=== PATIENT | female | born 1955 | race Caucasian/White ===

== ENCOUNTER 2022-03-07 15:44 | Emergency (ER) | payer MEDICARE, OTHER, SELFPAY ==
[2022-03-07 16:05] VITALS: BP 137/74; PULSE 97; RESP 18; TEMP 36.4; O2SAT 94; BMI 21.6
--- NOTE | 2022-03-07 16:27 | ED.GENADULT ---
HPI - General Adult General Chief complaint: Unspecified Complaint, Adult Stated complaint: covid+ Time Seen by Provider: 03/07/22 15:56 History of Present Illness HPI narrative: Patient is a 66-year-old woman who is not vaccinated for COVID-19 but tested positive today after several days of general malaise body aches and fatigue. She has has a mild nonproductive cough. She has had no recent sick contacts. She has Graves disease and would like Paxlovid to help with her symptoms. No other significant symptoms patient otherwise is reasonably healthy. Related Data Home Medications Medication Instructions Recorded Confirmed methmazole 03/07/22 Previous Rx's Medication Instructions Recorded nirmatrelvir 300 mg (150 mg x See Rx Instructions .ROUTE 03/07/22 2)-ritonavir 100 mg tablet (EUA) .COMPLEX #6 tab (Paxlovid 300 mg () Allergies Allergy/AdvReac Type Severity Reaction Status Date / Time No Known Drug Allergies Allergy Verified 03/07/22 16:05 Review of Systems Status of ROS: Reports: 10 or more systems reviewed and unremarkable except as noted in History and below Exam Narrative: Exam Narrative: EXAM GENERAL: Patient appears comfortable and well. EYES: No scleral icterus. LYMPH: No supraclavicular or cervical lymphadenopathy. SKIN: Visible skin seen during exam normal or with benign process only. EXT: No dependent lower extremity pedal edema. HEART: Regular rate and rhythm with no murmurs, rubs, or gallops. LUNGS: Clear to auscultation bilaterally with no crackles or wheezes. ABD: Soft, non tender, non distended. PSYCH: Good eye contact, speech is not pressured. Const: Vital Signs, click to edit/add: Vital Signs - 24 hr 03/07/22 16:05 Temperature 97.5 F L Pulse Rate [Right Pulse Oximeter] 97 Respiratory Rate 18 Blood Pressure [Le ft Upper Arm] 137/74 Pulse Oximetry 94 Course Course Hospital Course: We did a nice discussion about risk factors and management of COVID. Due to her comorbidities she would like to be prescribed Paxlovid Vital Signs Vital signs: Initial Vital Signs Temperature 97.5 F L 03/07/22 16:05 Temperature Source Temporal Artery Scan 03/07/22 16:05 Pulse Rate 97 03/07/22 16:05 Respiratory Rate 18 03/07/22 16:05 Blood Pressure 137/74 03/07/22 16:05 Blood Pressure Mean 95 03/07/22 16:05 Blood Pressure Position Sitting 03/07/22 16:05 Pulse Oximetry 94 03/07/22 16:05 Oxygen Delivery Method 03/07/22 16:05 Vital Signs Temperature 97.5 F L 03/07/22 16:05 Pulse Rate 97 03/07/22 16:05 Respiratory Rate 18 03/07/22 16:05 Blood Pressure 137/74 03/07/22 16:05 Pulse Oximetry 94 03/07/22 16:05 Temperature 97.5 F L 03/07/22 16:05 Pulse Rate 97 03/07/22 16:05 Respiratory Rate 18 03/07/22 16:05 Blood Pressure 137/74 03/07/22 16:05 Pulse Oximetry 94 03/07/22 16:05 Discharge Plan Discharge Clinical Impression: COVID-19 Patient Disposition: Home, Self-Care Condition: Stable Instructions: COVID-19 (Coronavirus Disease 2019) (ED) Additional Instructions: Paxlovid as directed Rest Fluids Tylenol Motrin Isoloation as described Activity Level: Activity as Tolerated Discharge Diet: Regular Prescriptions: New Paxlovid (EUA) 150 mg x 2- 100 mg tablet See Rx Instructions .ROUTE .COMPLEX Qty: 6 0RF Rx Instructions: take TWO 150 mg tablets of nirmatrelvir with ONE 100 mg tablet of ritonavir twice daily for 5 days No Action methmazole 0RF Stand Alone Forms: MyHealth Info Instructions
[2022-03-07 16:45] VITALS: BP 137/74; PULSE 97; RESP 18; TEMP 36.4; O2SAT 94
== END 2022-03-07 16:45 | disposition home or self-care (01) ==
LOC: ED 17:31
PROVIDERS: Emergency Provider Internal Medicine
DX: U07.1 COVID-19 (principal)
CPT/HCPCS: 99283; 99284